=== PATIENT | male | born 1990 | race Caucasian/White ===

== ENCOUNTER 2019-01-03 17:27 | Emergency (ER) | payer BC ==
[2019-01-03 17:36] VITALS: BP 129/67
[2019-01-03] MEDS ORDERED: Oseltamivir 75 MG Cap PO ONE (18:01)
[2019-01-03] MEDS ORDERED: Oseltamivir 75 MG Cap ONE (18:06)
--- NOTE | 2019-01-03 18:10 | EDM.PDOC ---
ED HPI GENERAL MEDICAL PROBLEM - General Chief Complaint: Fever Stated Complaint: FEVER Time Seen by Provider: 01/03/19 17:39 Source of Information: Reports: Patient, Family, RN Notes Reviewed History Limitations: Reports: No Limitations - History of Present Illness INITIAL COMMENTS - FREE TEXT/NARRATIVE: Patient is a 28-year-old male was brought into the ED by his for evaluation of a fever. He states that he started feeling body aches yesterday. The states that the fever started this morning, she took his temperature orally and it was found to be 103F. He has been taking Tylenol and ibuprofen, his last Tylenol dose was at around 1600. The patient complains of cough, headache, generalized body aches, and nausea. He denies any vomiting or diarrhea. He states that he has a coworker that has been sick with similar symptoms. He did not get an influenza vaccine this year. The also states that there are 2 young daughters were recently sick with RSV in the last week or so. Treatments COPY LATHE TENDER: Reports: Acetaminophen, NSAIDS generalized Pain Score (Numeric/FACES): 6 - Related Data Allergies Allergy/AdvReac Type Severity Reaction Status Date / Time amoxicillin Allergy Other Verified 01/03/19 17:36 Home Meds: Home Meds Oseltamivir [Tamiflu] 75 mg PO BID #9 cap 01/03/19 [Rx] Past Medical History - Past Health History Medical/Surgical History: Denies Medical/Surgical History Social & Family History - Family History Family Medical History: Noncontributory - Tobacco Use Smoking Status *Q: Never Smoker - Caffeine Use Caffeine Use: Reports: Other - Recreational Drug Use Recreational Drug Use: No ED ROS ENT - Review of Systems Review Of Systems: See Below Constitutional: Reports: Fever, Chills, Malaise HEENT: Reports: No Symptoms Respiratory: Reports: Cough Cardiovascular: Reports: No Symptoms Endocrine: Reports: No Symptoms GI/Abdominal: Reports: Nausea. Denies: Diarrhea, Vomiting : Reports: No Symptoms Musculoskeletal: Reports: Other (Generalized body aches) Skin: Reports: No Symptoms Neurological: Reports: Headache Psychiatric: Reports: No Symptoms Hematologic/Lymphatic: Reports: No Symptoms Immunologic: Reports: No Symptoms ED EXAM, ENT - Physical Exam Exam: See Below Exam Limited By: No Limitations General Appearance: Alert, WD/WN, No Apparent Distress Eye Exam: Bilateral Eye: Normal Inspection Ears: Normal External Exam Nose: Normal Inspection Mouth/Throat: Normal Inspection, Normal Oropharynx, Normal Teeth Head: Atraumatic, Normocephalic Neck: Normal Inspection Respiratory/Chest: No Respiratory Distress, Lungs Clear, Normal Breath Sounds, No Accessory Muscle Use, Chest Non-Tender Cardiovascular: Normal Peripheral Pulses, Regular Rate, Rhythm, No Murmur GI/Abdominal: Normal Bowel Sounds, Soft, Non-Tender, No Distention Extremities: Normal Inspection, Normal Capillary Refill Neurological: Alert, Oriented, Normal Cognition, No Motor/Sensory Deficits Psychiatric: Normal Affect, Normal Mood Skin: Warm, Dry, Intact, Normal Color, No Rash Course - Vital Signs Last Recorded V/S: Last Vital Signs Temp 99 F 01/03/19 17:32 Pulse 89 01/03/19 17:32 Resp 18 01/03/19 17:32 BP 129/67 01/03/19 17:32 Pulse Ox 97 01/03/19 17:32 - Orders/Labs/Meds Meds: Medications Discontinued Medications Generic Name Dose Route Start Last Admin Trade Name Alan PRN Reason Stop Dose Admin Oseltamivir Phosphate 75 mg 01/03/19 18:01 01/03/19 18:07 Tamiflu PO 01/03/19 18:02 75 mg ONETIME ONE Administration Oseltamivir Phosphate Confirm 01/03/19 18:06 Tamiflu Administered 01/03/19 18:07 Dose 75 mg .ROUTE .STK-MED ONE - Re-Assessments/Exams Free Text/Narrative Re-Assessment/Exam: 01/03/19 18:08 Patient presents to the ED for his fever. I did obtain a flu swab, the labs are still pending. Upon his initial presentation the and his clinical symptoms he is positive for flu. Have ordered 75 mg by mouth Tamiflu as per his wishes, I will provide a paper prescription for his for prophylaxis. Other general recommendations were given for flu symptoms. 01/03/19 18:17 The patient's swab was positive for influenza A. Departure - Departure Time of Disposition: 18:10 Disposition: Home, Self-Care 01 Condition: Fair Clinical Impression: Influenza A - Discharge Information *PRESCRIPTION DRUG MONITORING PROGRAM REVIEWED*: No *COPY OF PRESCRIPTION DRUG MONITORING REPORT IN PATIENT TERESA: No Prescriptions: Oseltamivir [Tamiflu] 75 mg PO BID #9 cap Instructions: Influenza, Adult, [id number] Referrals: PCP,None [Primary Care Provider] - Forms: ED Department Discharge Additional Instructions: You have been evaluated in the ED for your fever. Your Influenza swab was You may take tylenol 500 mg or ibuprofen 600mg q6 hrs for pain/fever relief. Do not exceed 4000mg tylenol in 24 hours. Do not exceed 3200mg ibuprofen in 24 hours. Please take the Tamiflu one tablet by mouth twice daily for 5 days. This has been sent to [facility] pharmacy, located near [facility]. Please return to ED if your symptoms should change or worsen.
== END 2019-01-03 18:39 | disposition home or self-care (01) ==
LOC: JD.ED 17:27
DX: J10.1 Influenza due to other identified influenza virus with other respiratory manifestations (principal); Z88.1 Allergy status to other antibiotic agents
CPT/HCPCS: 87804; 99283; A9270

== ENCOUNTER 2020-05-08 19:49 | Emergency (ER) | payer BC ==
[2020-05-08] MEDS ORDERED: Proparacaine 0.5% Ophth Soln 15 ML Bottle EYELF ONE (20:15)
[2020-05-08 20:25] VITALS: BP 130/81; PULSE 62
--- NOTE | 2020-05-08 21:07 | EDM.PDOC ---
ED HPI GENERAL MEDICAL PROBLEM - General Chief Complaint: Eye Problems Stated Complaint: EYE PROBLEM Time Seen by Provider: 05/08/20 21:07 - History of Present Illness INITIAL COMMENTS - FREE TEXT/NARRATIVE: 30-year-old male presents the emergency room with a foreign body injury to his left eye Shortly before arrival the patient had a screw bit break and hit in his eye. The patient was able to get it out. He is got an area of redness on his medial sclera. The patient believes he has it completely removed. He has mild discomfort in his eye and no significant vision changes. Patient is unsure of his last tetanus shot but thinks it was over 10 years ago. The patient denies any other problems at this time. Left Eye Pain Score (Numeric/FACES): 2 - Related Data Allergies Allergy/AdvReac Type Severity Reaction Status Date / Time amoxicillin Allergy Other Verified 01/03/19 17:36 Home Meds: Home Meds Oseltamivir [Tamiflu] 75 mg PO BID #9 cap 01/03/19 [Rx] Past Medical History - Past Health History Medical/Surgical History: Denies Medical/Surgical History - Past Surgical History HEENT Surgical History: Reports: Oral Surgery Musculoskeletal Surgical History: Reports: Other (See Below) Other Musculoskeletal Surgeries/Procedures:: right ankle fracture; bilat wrist fracture Social & Family History - Family History Family Medical History: Noncontributory - Tobacco Use Smoking Status *Q: Never Smoker - Caffeine Use Caffeine Use: Reports: Coffee - Recreational Drug Use Recreational Drug Use: No ED ROS GENERAL - Review of Systems Review Of Systems: See Below Constitutional: Reports: No Symptoms HEENT: Reports: Eye Pain Respiratory: Reports: No Symptoms Cardiovascular: Reports: No Symptoms GI/Abdominal: Reports: No Symptoms ED EXAM GENERAL W FULL EYE - Physical Exam Exam: See Below Exam Limited By: No Limitations General Appearance: Alert, WD/WN, No Apparent Distress Eye Exam: Left Eye: Conjunctival Injection, Other (He has a left-sided scleral tiny laceration where the foreign body hit), Bilateral Eye: Foreign Body (None seen), Proptosis Visual Acuity (R) 20/: 40 Visual Acuity (L) 20/: 20 With Correction: No Eyelids: Bilateral: Normal Appearance Conjunctiva & Sclera: Left: Foreign Body (The slit-lamp he has a very tiny dark what appears to be a foreign body in the fold of the tiny laceration presumably from the screw bit) Cornea Exam: Left: Normal Appearance, Other (Normal-appearing cornea) Extraocular Movements: Bilateral: Intact Pupillary Reaction: Bilateral: Brisk Anterior Chamber: Bilateral: Normal Appearance Posterior Chamber: Bilateral: Normal Funduscopic Neck: No: Normal Inspection, Supple, Non-Tender, Lymphadenopathy (L), Lymphadenopathy (R) Respiratory/Chest: No Respiratory Distress, Lungs Clear, Normal Breath Sounds Cardiovascular: Regular Rate, Rhythm, No Edema, No Murmur ED EYE w/ Add Procedure - Eye Procedure Alcaine Drops Administered: No (Paracaine) Eye FB Removal: Other Progress: Seen a eye spud this foreign body that was very small was removed using a eye spud without difficulty. Course - Vital Signs Last Recorded V/S: Last Vital Signs Temp 36.5 C 05/08/20 20:23 Pulse 62 05/08/20 20:23 Resp 16 05/08/20 20:23 BP 130/81 05/08/20 20:23 Pulse Ox 99 05/08/20 20:23 - Orders/Labs/Meds Orders: Active Orders 24 hr Category Date Time Status Vaccines to be Administered [RC] PER UNIT ROUTINE Care 05/08/20 21:53 Active Max Facial Sinus wo Cont [CT] Stat Exams 05/08/20 21:38 Taken Meds: Medications Discontinued Medications Generic Name Dose Route Start Last Admin Trade Name Freq PRN Reason Stop Dose Admin Diphtheria/Tetanus/Acell Pertussis 0.5 ml 05/08/20 21:53 Adacel IM 05/08/20 21:54 .ONCE ONE Proparacaine HCl 2 ml 05/08/20 20:15 05/08/20 20:22 Proparacaine 0.5% Ophth Soln EYELF 05/08/20 20:16 2 drop ONETIME ONE Administration - Re-Assessments/Exams Free Text/Narrative Re-Assessment/Exam: 05/08/20 21:59 We will get a globe CT to ensure no more metallic foreign bodies. 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 The significance is unclear to me I did discuss this with the patient and have recommended he establish with a local provider and investigate this further. Departure - Departure Time of Disposition: 22:51 Disposition: Home, Self-Care 01 Clinical Impression: Foreign body of left eye - Discharge Information Referrals: PCP,None [Primary Care Provider] - Forms: ED Department Discharge Additional Instructions: Return to the emergency room with any questions problems or worsening symptoms. Tylenol or Motrin as needed for discomfort tonight. You should not have any more discomfort or problems with your eye. Establish with a local physician or provider and have them investigate this possible area of abnormal bone tissue seen on the CT this evening. He may follow-up with the hospital clinic. [phone] Tetanus was updated this evening. Sepsis Event Note (ED) - Evaluation Sepsis Screening Result: No Definite Risk - Focused Exam Vital Signs: Vital Signs Temp Pulse Resp BP Pulse Ox 05/08/20 20:23 36.5 C 62 16 130/81 99 - My Orders Last 24 Hours: My Active Orders 05/08/20 21:38 Max Facial Sinus wo Cont [CT] Stat 05/08/20 21:53 Vaccines to be Administered [RC] PER UNIT ROUTINE - Assessment/Plan Last 24 Hours: My Active Orders 05/08/20 21:38 Max Facial Sinus wo Cont [CT] Stat 05/08/20 21:53 Vaccines to be Administered [RC] PER UNIT ROUTINE
[2020-05-08] MEDS ORDERED: Diphtheria,Pertussis(Acell),Tetanus Vaccine 0.5 ML Syringe IM ONE (21:53)
--- NOTE | 2020-05-09 06:41 | CT ---
CT orbits Technique: Multiple axial sections through the orbits were obtained. Intravenous contrast not utilized. Comparison: No previous orbital study is available. Findings: Air-fluid level and mild mucosal thickening noted within the right maxillary sinus. Other visualized paranasal sinuses are clear. Visualized mastoid sinuses are clear. Right and left globes are symmetric. No radiopaque foreign body is appreciated within either globe or within the orbits. 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 No acute osseous finding is seen. Impression: 1. No opaque foreign body. 2. Air-fluid level and mild mucosal thickening of the right maxillary sinus. Please correlate if patient has any pre-existing symptoms of sinusitis. 3. Fibrous dysplasia as noted above. Diagnostic code #2 This report was dictated in MDT I agree with preliminary report from octavio, finalized on 05/08/20, 11:26 PM Central Daylight Time
== END 2020-05-08 23:03 | disposition home or self-care (01) ==
LOC: JD.ED 19:49
DX: T15.92XA Foreign body on external eye, part unspecified, left eye, initial encounter (principal); Z23 Encounter for immunization; Z88.1 Allergy status to other antibiotic agents
CPT/HCPCS: 65205; 70486; 70486-26; 90471; 90715; 99283-25